=== PATIENT | male | born 1940 | race Caucasian/White ===

== ENCOUNTER 2018-06-20 07:48 | Day surgery (SDC) | payer MEDICARE, BC ==
[2018-06-20] VITALS (16 sets, daily range): BP systolic 107–157; BP diastolic 56–103
[~2018-06-20] VITALS: Ht 170.2 cm; Wt 97.3 kg
[2018-06-20] MEDS ORDERED: normal saline 1000ml 1,000 ML IV SCH (08:10)
[2018-06-20 08:32] LABS: BASOPHILS % (AUTO) 0.1 % (0-1); EOSINOPHILS # (AUTO) 0.3 X10'3 (0-0.9); EOSINOPHILS % (AUTO) 2.2 % (0-6); HEMOGLOBIN 13.5 g/dl (14.0-17.9); LYMPHOCYTES % (AUTO) 37.5 % (21-51); MEAN CORPUSCULAR HEMOGLOBIN 30.1 PG (27.0-31.0); MEAN CORPUSCULAR HGB CONC 33.9 % (33.0-36.5); MEAN CORPUSCULAR VOLUME 88.8 FL (78-98); MONOCYTES % (AUTO) 7.6 % (2-12); NEUTROPHILS % (AUTO) 52.6 % (42-75); PLATELET COUNT 250 X10'3 (140-440); RED CELL DISTRIBUTION WIDTH 13.6 % (11.5-14.5); WHITE BLOOD COUNT 13.3 X10'3 (4.5-11.0)
[2018-06-20] MEDS ORDERED: METF10004 PO (08:46)
[2018-06-20] MEDS ORDERED: ATOR20TA PO (08:46)
[2018-06-20] MEDS ORDERED: FLO0.4C PO (08:46)
[2018-06-20] MEDS ORDERED: VIT1CAPS9 PO (08:46)
[2018-06-20] MEDS ORDERED: ASPI-1265 PO (08:46)
[2018-06-20] MEDS ORDERED: GLIP2.5T3 PO (08:46)
[2018-06-20] MEDS ORDERED: HYDR25TA4 PO (08:46)
[2018-06-20] MEDS ORDERED: LISI40TA4 PO (08:46)
[2018-06-20] MEDS ORDERED: AZEL6DRO6 EACHEYE (08:46)
[2018-06-20] MEDS ORDERED: CARV25TA2 PO (08:46)
[2018-06-20] MEDS ORDERED: KEN0.1O TP (08:46)
[2018-06-20] MEDS ORDERED: AMLO10TA PO (08:46)
[2018-06-20] MEDS ORDERED: midazolam 2 mg/2 ml injection IV PRN (09:35)
[2018-06-20] MEDS ORDERED: fentaNYL/PF 50MCG/1 ML 2ML syringe IV PRN (09:35)
[2018-06-20] MEDS ORDERED: fentaNYL/PF 50MCG/1 ML 2ML syringe ONE (09:54)
[2018-06-20] MEDS ORDERED: midazolam 2 mg/2 ml injection ONE (09:54)
[2018-06-20] MEDS ORDERED: HYDROcodone/acetaminophen 5mg/325mg tablet PO PRN (11:05)
== END 2018-06-20 13:10 | disposition home or self-care (01) ==
LOC: SSTAY O 07:48
PROVIDERS: ATTEND Radiology Diagnostic Radiology
DX: C34.02 Malignant neoplasm of left main bronchus (principal); I10 Essential (primary) hypertension; N40.0 Benign prostatic hyperplasia without lower urinary tract symptoms; E11.9 Type 2 diabetes mellitus without complications; Z72.89 Other problems related to lifestyle; Z79.84 Long term (current) use of oral hypoglycemic drugs; Z79.82 Long term (current) use of aspirin; Z79.899 Other long term (current) drug therapy
CPT/HCPCS: 32405; 36415; 71045; 77012; 85025; 99152; 99153; J2250; J3010; J7030

== ENCOUNTER 2018-07-24 05:29 | Inpatient (IN) | payer MEDICARE, BC ==
[2018-07-22 13:58] LABS: BASOPHILS % (AUTO) 0.2 % (0-1); EOSINOPHILS # (AUTO) 0.3 X10'3 (0-0.9); EOSINOPHILS % (AUTO) 2.3 % (0-6); LYMPHOCYTES # (AUTO) 5.5 X10'3 (1.1-4.8); LYMPHOCYTES % (AUTO) 43.7 % (21-51); MEAN CORPUSCULAR HEMOGLOBIN 30.2 PG (27.0-31.0); MEAN CORPUSCULAR HGB CONC 34.2 % (33.0-36.5); MEAN CORPUSCULAR VOLUME 88.3 FL (78-98); MEAN PLATELET VOLUME 7.9 FL (7.4-10.4); MONOCYTES # (AUTO) 1.1 X10'3 (0-0.9); MONOCYTES % (AUTO) 8.5 % (2-12); NEUTROPHILS # (AUTO) 5.7 X10'3 (1.8-7.7); NEUTROPHILS % (AUTO) 45.3 % (42-75); PRE OP HEMATOCRIT 38.9 % (42.0-52.0); PRE OP HEMOGLOBIN 13.3 g/dL (14.0-17.9); PRE OP PLATELET COUNT 257 X10'3 (140-440); RED BLOOD COUNT 4.41 X10'6 (4.70-6.10); RED CELL DISTRIBUTION WIDTH 13.5 % (11.5-14.5)
[2018-07-22 14:00] LABS: CLARITY,URINE CLEAR (Clear); COLOR,URINE YELLOW (Yellow); GLUCOSE, URINE NEGATIVE (Neg); KETONES,URINE NEGATIVE (Neg); LEUKOCYTE ESTERASE ,URINE NEGATIVE (Neg); NITRITES, URINE NEGATIVE (Neg); OCCULT BLOOD,URINE NEGATIVE (Neg); PH,URINE 7.5 (4.8-8.0); PROTEIN,URINE NEGATIVE (Neg); UROBILINOGEN,URINE 0.2 E.U/dL (0.2-1.0)
[2018-07-22 14:07] LABS: UA COLLECTION TYPE CLN CATCH MIDSTREAM
[2018-07-22 14:26] LABS: PRE OP PROTIME 10.4 SECONDS (9.0-12.0)
[2018-07-22 14:31] LABS: ALBUMIN 3.9 G/DL (3.4-5.0); ALBUMIN/GLOBULIN RATIO 1.1 (1.1-1.5); ALKALINE PHOSPHATASE 89 IU/L (46-116); BLOOD UREA NITROGEN 14 MG/DL (7-18); BUN/CREATININE RATIO 15.9 (5.4-32.0); CALCIUM 10.3 MG/DL (8.5-10.1); CHLORIDE 96 MMOL/L (99-107); CREATININE 0.88 MG/DL (0.60-1.10); PRE OP ALT 26 U/L (30-65); PRE OP ANION GAP 11 (8-16); PRE OP AST 20 U/L (10-37); PRE OP BILIRUB, TOTAL 0.4 MG/DL (0.0-1.0); PRE OP GLUCOSE 133 MG/DL (70-104); PRE OP SODIUM 137 MMOL/L (135-145); TOTAL CARBON DIOXIDE 30.4 MMOL/L (24-32); TOTAL PROTEIN 7.5 G/DL (6.4-8.2); eGFR 84 ML/MIN
[2018-07-22 14:32] LABS: ABG BASE EXCESS 5.3 mmol/L (-2.0-3.0); ABG HCO3 28.8 mmol/L (22.0-26.0); ABG OXYGEN SATURATION 96.6 % (95-98); ABG PCO2 (T) 38.2 mmHg (35.0-48.0); ABG PH (T) 7.495 (7.350-7.450); ABG PO2 (T) 84.2 mmHg (83-108); ALLEN'S TEST Positive; FCOHb 0.6 % (0.5-1.5); FMetHb 0.3 % (0.3-1.12); FO2Hb 95.7 % (94-100); TOTAL HEMOGLOBIN 13.8 G/dl (14.0-18.0)
[2018-07-22 14:35] LABS: PRE OP POTASSIUM 3.1 MMOL/L (3.4-5.1)
[2018-07-22 14:39] LABS: HEMOGLOBIN A1C 6.9 % (4.5-6.2)
[2018-07-24] VITALS (23 sets, daily range): BP systolic 143–184; BP diastolic 52–98
[~2018-07-24] VITALS: Ht 170.2 cm; Wt 110.5 kg
[~2018-07-24 05:29] MED LIST: AMLO10TA PO; ASPI-1265 PO; ATOR20TA PO; AZEL137S4 BOTHNARES; CARV25TA2 PO; FLO0.4C PO; GLIP2.5T3 PO; HYDR25TA4 PO; KEN0.1O TP; LISI40TA4 PO; METF-438 PO; MULT-1141 PO; VIT1CAPS9 PO; dextrose 50%-water 50ml dispensing syringe IV PRN; ringers solution, lacted 1,000 ML IV SCH
[2018-07-24] MEDS ORDERED: famotidine 20mg tablet PO ONE (05:30)
[2018-07-24] MEDS ORDERED: DOCUMENT DATE & TIME OF BETA-BLOCKER PO ONE (05:30)
[2018-07-24] MEDS ORDERED: metoprolol tartrate 12.5mg (1/2 tablet) PO ONE (05:30)
[2018-07-24] MEDS ORDERED: insulin regular, human 100 UNIT in normal saline 100ml IV soln 99 ML IV SCH ×2 (05:30)
[2018-07-24] MEDS ORDERED: Cefazolin 2GM/50ML dext iso,osmotic IVPB IV ONE (05:30)
[2018-07-24] MEDS ORDERED: LIDOcaine 1% (10mg/ml) 2ml vial ONE (06:05)
[2018-07-24] MEDS ORDERED: metoprolol tartrate 25mg tablet PO ONE (06:25)
[2018-07-24 06:46] LABS: ISTAT CREATININE 0.9 mg/dL (0.8-1.3); ISTAT HGB 12.9 g/dl (14.0-18.0); ISTAT IONIZED CALCIUM 1.3 mmol/L (1.03-1.32); ISTAT K 3.2 mmol/L (3.5-5.1); POC BUN/CREATININE RATIO 17.8 (5.4-32.0)
[2018-07-24] MEDS: mupirocin 2% nasal ointment 1gm UD NS SCH ×2 (06:49→19:07)
[2018-07-24] MEDS ORDERED: BUPIVAcaine/PF 2.5mg/ml (0.25%) 10ml vial ONE ×2 (07:06→08:39)
[2018-07-24] MEDS ORDERED: MIDAZolam 5mg/5ml vial ONE (07:19)
[2018-07-24] MEDS ORDERED: SUfentanil 50mcg/ml 1ml amp IV ONE (07:21)
[2018-07-24] MEDS ORDERED: potassium Cl 40MEQ/NS 500ml 500 ML IV ONE (07:25)
[2018-07-24] MEDS ORDERED: pancuronium br 1mg/ml inj IV ONE (07:27)
[2018-07-24] MEDS ORDERED: rocuronium 10mg/ml inj IV ONE (07:27)
[2018-07-24] MEDS ORDERED: propofol inj 20 ML IV ONE (07:27)
[2018-07-24] MEDS ORDERED: ringers solution, lacted 1,000 ML IV SCH (09:55)
[2018-07-24] MEDS ORDERED: meperidine/PF 25mg/ml syringe IV PRN ×3 (09:55)
[2018-07-24] MEDS ORDERED: proCHLORperazine 10 MG/2 ml inj IV PRN (09:55)
[2018-07-24] MEDS ORDERED: ondansetron/PF 4mg/2ml inj IV PRN (09:55)
[2018-07-24] MEDS ORDERED: morphine 4 MG/ML inj SYRINge IV PRN ×4 (09:55→11:35)
[2018-07-24] MEDS ORDERED: neostigmine methylsulfate 1 MG/ML 10ml vial ONE (11:09)
[2018-07-24] MEDS ORDERED: glycopyrrolate 0.2mg/ml inj ONE (11:09)
[2018-07-24] MEDS ORDERED: ondansetron/PF 4mg/2ml inj ONE (11:22)
[2018-07-24] MEDS ORDERED: ketorolac trometh. 30mg/ml inj. ONE (11:22)
[2018-07-24] MEDS ORDERED: ceFAZolin 1000mg inj ONE (11:23)
[2018-07-24] MEDS ORDERED: morphine/NS 5 mg/ml CADD 50 ML IV SCH (11:32)
[2018-07-24] MEDS ORDERED: MESSAGE TO PHARMACY PO ONE (11:35)
[2018-07-24] MEDS ORDERED: CADD PCA waste documentation MC PRN (11:35)
[2018-07-24] MEDS ORDERED: metoclopramide 5 mg/ml inj IV PRN (11:35)
[2018-07-24] MEDS ORDERED: dextrose 50%-water 50ml dispensing syringe IV PRN ×2 (11:35)
[2018-07-24] MEDS ORDERED: glucagon, human recombinant 1mg kit SUBCUT PRN (11:35)
[2018-07-24] MEDS ORDERED: naloxone 0.4 mg/ml inj IV PRN (11:35)
[2018-07-24] MEDS ORDERED: dextrose ORAL solution 15 GM/59 ML bottle PO PRN ×2 (11:35)
[2018-07-24 12:06] LABS: ISTAT ANION GAP 12 (8-12); ISTAT BUN 14 mg/dL (6-19); ISTAT CL 100 mmol/L (99-107); ISTAT CREATININE 0.7 mg/dL (0.8-1.3); ISTAT GLUCOSE 185 mg/dL (70-104); ISTAT HGB 12.2 g/dl (14.0-18.0); ISTAT Hct 36 %PCV (42-52); ISTAT IONIZED CALCIUM 1.23 mmol/L (1.03-1.32); ISTAT K 3.4 mmol/L (3.5-5.1); ISTAT NA 140 mmol/L (135-145); ISTAT TOTAL CO2 28 mmol/L (24-32); ISTAT eGFR > 90 ML/MIN
[2018-07-24 12:25] LABS: ABG BASE EXCESS -1.9 mmol/L (-2.0-3.0); ABG HCO3 23.5 mmol/L (22.0-26.0); ABG OXYGEN SATURATION 96.8 % (95-98); ABG PCO2 (T) 41.3 mmHg (35.0-48.0); ABG PH (T) 7.371 (7.350-7.450); FCOHb 0.3 % (0.5-1.5); FLOW 12 L/min; FMetHb 0.2 % (0.3-1.12); FO2Hb 96.3 % (94-100); PATIENT TEMPERATURE 36.4; RESPIRATORY RATE (OBSERVED) 16 b/min; TOTAL HEMOGLOBIN 13.3 G/dl (14.0-18.0)
[2018-07-24 12:33] LABS: BASOPHILS % (AUTO) 0.1 % (0-1); EOSINOPHILS # (AUTO) 0.3 X10'3 (0-0.9); EOSINOPHILS % (AUTO) 1.5 % (0-6); HEMOGLOBIN 12.6 g/dl (14.0-17.9); LYMPHOCYTES # (AUTO) 2.8 X10'3 (1.1-4.8); LYMPHOCYTES % (AUTO) 14.3 % (21-51); MEAN CORPUSCULAR HEMOGLOBIN 29.9 PG (27.0-31.0); MEAN CORPUSCULAR HGB CONC 34.1 % (33.0-36.5); MEAN CORPUSCULAR VOLUME 87.7 FL (78-98); MEAN PLATELET VOLUME 7.8 FL (7.4-10.4); MONOCYTES # (AUTO) 0.3 X10'3 (0-0.9); MONOCYTES % (AUTO) 1.6 % (2-12); NEUTROPHILS # (AUTO) 15.9 X10'3 (1.8-7.7); NEUTROPHILS % (AUTO) 82.5 % (42-75); PLATELET COUNT 256 X10'3 (140-440); RED BLOOD COUNT 4.22 X10'6 (4.70-6.10); RED CELL DISTRIBUTION WIDTH 14.1 % (11.5-14.5); WHITE BLOOD COUNT 19.3 X10'3 (4.5-11.0)
[2018-07-24 12:42] LABS: ALBUMIN 3.5 G/DL (3.4-5.0); ANION GAP 7 (8-16); BLOOD UREA NITROGEN 15 MG/DL (7-18); BUN/CREATININE RATIO 17.2 (5.4-32.0); CHLORIDE 104 MMOL/L (99-107); CREATININE 0.87 MG/DL (0.60-1.10); GLUCOSE 191 MG/DL (70-104); POTASSIUM 3.3 MMOL/L (3.5-5.1); SODIUM 140 MMOL/L (135-145); TOTAL CARBON DIOXIDE 29.4 MMOL/L (24-32); eGFR 85 ML/MIN
[2018-07-24] MEDS ORDERED: hydrALAZINE 20mg/ml inj. IV PRN (16:15)
[2018-07-24] MEDS: ceFAZolin 1GM/D5W- ADD-VANTAGE 50 ML IV SCH ×2 (16:29→23:41)
[2018-07-24] MEDS: carVEDilol 12.5mg tablet PO SCH (16:43)
[2018-07-24] MEDS: insulin Lispro (HumaLOG) vial - multi-dose SQ SCH ×2 (16:45→19:12)
[2018-07-24] MEDS: morphine/NS 5 mg/ml CADD 50 ML IV SCH ×4 (17:00→23:00)
[2018-07-24] MEDS: triamcinolone acet 0.1% cream 15gm TP SCH (19:07)
[2018-07-24] MEDS: tamsulosin 0.4mg capsule PO SCH (20:31)
[2018-07-24] MEDS: atorvastatin 20mg tablet PO SCH (20:31)
[2018-07-24] MEDS: docusate sod 100mg capsule PO SCH (20:31)
[2018-07-24] MEDS: insulin glargine (Lantus) pen - multi-dose SQ SCH (20:55)
[2018-07-25] VITALS (24 sets, daily range): BP systolic 79–154; BP diastolic 42–76
[2018-07-25] MEDS: albuterol 2.5 MG/3 ML nebule NEB PRN ×2 (00:04→21:01)
[2018-07-25] MEDS: morphine/NS 5 mg/ml CADD 50 ML IV SCH ×12 (01:00→23:00)
[2018-07-25 02:41] LABS: BASOPHILS % (AUTO) 0.1 % (0-1); EOSINOPHILS % (AUTO) 0 % (0-6); HEMATOCRIT 31.3 % (42.0-52.0); HEMOGLOBIN 10.8 g/dl (14.0-17.9); LYMPHOCYTES # (AUTO) 2.6 X10'3 (1.1-4.8); LYMPHOCYTES % (AUTO) 13.6 % (21-51); MEAN CORPUSCULAR HGB CONC 34.4 % (33.0-36.5); MEAN CORPUSCULAR VOLUME 87.3 FL (78-98); MEAN PLATELET VOLUME 7.9 FL (7.4-10.4); MONOCYTES # (AUTO) 1.5 X10'3 (0-0.9); MONOCYTES % (AUTO) 8.2 % (2-12); NEUTROPHILS # (AUTO) 14.7 X10'3 (1.8-7.7); NEUTROPHILS % (AUTO) 78.1 % (42-75); PLATELET COUNT 218 X10'3 (140-440); RED BLOOD COUNT 3.58 X10'6 (4.70-6.10); RED CELL DISTRIBUTION WIDTH 13.6 % (11.5-14.5); WHITE BLOOD COUNT 18.9 X10'3 (4.5-11.0)
[2018-07-25 02:57] LABS: ANION GAP 7 (8-16); BLOOD UREA NITROGEN 13 MG/DL (7-18); BUN/CREATININE RATIO 14.8 (5.4-32.0); CALCIUM 7.9 MG/DL (8.5-10.1); CHLORIDE 93 MMOL/L (99-107); CREATININE 0.88 MG/DL (0.60-1.10); GLUCOSE 195 MG/DL (70-104); MAGNESIUM 1.4 MG/DL (1.5-2.4); POTASSIUM 3.3 MMOL/L (3.5-5.1); SODIUM 128 MMOL/L (135-145); TOTAL CARBON DIOXIDE 28.1 MMOL/L (24-32); eGFR 84 ML/MIN
[2018-07-25] MEDS ORDERED: Potassium Cl inj 40 MEQ in normal saline 250ml IV soln 230 ML IV ONE (03:55)
[2018-07-25] MEDS: ondansetron/PF 4mg/2ml inj IV PRN (03:57)
[2018-07-25] MEDS ORDERED: furosemide 40mg/4ml inj IV ONE (06:15)
[2018-07-25] MEDS ORDERED: dexamethasone sod phosphate 10mg/ml inj ONE (07:17)
[2018-07-25] MEDS ORDERED: potassium Cl 2 mEq/ml inj IV ONE (07:17)
[2018-07-25] MEDS ORDERED: sevoflurane 250ml liquid IH ONE (07:17)
[2018-07-25] MEDS: mupirocin 2% nasal ointment 1gm UD NS SCH ×2 (08:00→19:12)
[2018-07-25] MEDS: triamcinolone acet 0.1% cream 15gm TP SCH ×2 (08:00→19:13)
[2018-07-25] MEDS ORDERED: GLIPIZIDE PO SCH (08:00)
[2018-07-25] MEDS: carVEDilol 12.5mg tablet PO SCH ×2 (08:24→19:13)
[2018-07-25] MEDS: HYDROchlorothiazide 25mg tablet PO SCH (08:24)
[2018-07-25] MEDS: lisinopril 20mg tablet PO SCH (08:25)
[2018-07-25] MEDS: docusate sod 100mg capsule PO SCH ×2 (08:25→19:13)
[2018-07-25] MEDS: amLODIPine 5mg tablet PO SCH (08:25)
[2018-07-25] MEDS: aspirin 81mg tab.chew PO SCH (08:25)
[2018-07-25] MEDS: insulin Lispro (HumaLOG) vial - multi-dose SQ SCH ×3 (09:44→20:28)
[2018-07-25] MEDS: HYDROcodone/acetaminophen 10/325mg tab PO PRN ×2 (12:31→20:54)
[2018-07-25] MEDS: atorvastatin 20mg tablet PO SCH (20:16)
[2018-07-25] MEDS: tamsulosin 0.4mg capsule PO SCH (20:16)
[2018-07-25] MEDS: insulin glargine (Lantus) pen - multi-dose SQ SCH (20:27)
[2018-07-26] VITALS (23 sets, daily range): BP systolic 92–152; BP diastolic 47–76
[2018-07-26] MEDS: morphine/NS 5 mg/ml CADD 50 ML IV SCH ×7 (01:00→13:00)
[2018-07-26] MEDS: albuterol 2.5 MG/3 ML nebule NEB PRN ×2 (01:28→10:08)
[2018-07-26] MEDS: ondansetron/PF 4mg/2ml inj IV PRN (01:39)
[2018-07-26] MEDS: HYDROcodone/acetaminophen 10/325mg tab PO PRN ×3 (03:07→11:35)
[2018-07-26 04:18] LABS: BASOPHILS % (AUTO) 0.1 % (0-1); EOSINOPHILS % (AUTO) 0.1 % (0-6); HEMATOCRIT 26.2 % (42.0-52.0); LYMPHOCYTES % (AUTO) 20.1 % (21-51); MEAN CORPUSCULAR HEMOGLOBIN 30.2 PG (27.0-31.0); MEAN CORPUSCULAR HGB CONC 34.4 % (33.0-36.5); MEAN CORPUSCULAR VOLUME 87.9 FL (78-98); MEAN PLATELET VOLUME 8.1 FL (7.4-10.4); MONOCYTES # (AUTO) 2.5 X10'3 (0-0.9); MONOCYTES % (AUTO) 12.7 % (2-12); NEUTROPHILS # (AUTO) 13.4 X10'3 (1.8-7.7); PLATELET COUNT 192 X10'3 (140-440); RED BLOOD COUNT 2.99 X10'6 (4.70-6.10); RED CELL DISTRIBUTION WIDTH 13.5 % (11.5-14.5); WHITE BLOOD COUNT 19.9 X10'3 (4.5-11.0)
[2018-07-26 04:59] LABS: ALBUMIN 2.8 G/DL (3.4-5.0); ANION GAP 6 (8-16); BLOOD UREA NITROGEN 29 MG/DL (7-18); CALCIUM 8.3 MG/DL (8.5-10.1); CHLORIDE 93 MMOL/L (99-107); CREATININE 1.32 MG/DL (0.60-1.10); GLUCOSE 152 MG/DL (70-104); MAGNESIUM 1.8 MG/DL (1.5-2.4); POTASSIUM 3.7 MMOL/L (3.5-5.1); SODIUM 128 MMOL/L (135-145); TOTAL CARBON DIOXIDE 28.8 MMOL/L (24-32); eGFR 53 ML/MIN
[2018-07-26] MEDS: magnesium hydroxide 30ml (MOM) UD suspension PO PRN (07:16)
[2018-07-26] MEDS: HYDROchlorothiazide 25mg tablet PO SCH (07:17)
[2018-07-26] MEDS: docusate sod 100mg capsule PO SCH ×2 (07:17→19:08)
[2018-07-26] MEDS: aspirin 81mg tab.chew PO SCH (07:17)
[2018-07-26] MEDS: lisinopril 20mg tablet PO SCH (07:17)
[2018-07-26] MEDS: carVEDilol 12.5mg tablet PO SCH ×2 (07:18→19:05)
[2018-07-26] MEDS: amLODIPine 5mg tablet PO SCH (07:18)
[2018-07-26] MEDS: triamcinolone acet 0.1% cream 15gm TP SCH ×2 (07:23→19:08)
[2018-07-26] MEDS: mupirocin 2% nasal ointment 1gm UD NS SCH ×2 (07:23→19:07)
[2018-07-26] MEDS: insulin Lispro (HumaLOG) vial - multi-dose SQ SCH ×3 (10:07→19:18)
[2018-07-26] MEDS ORDERED: naloxone 0.4 mg/ml inj IV PRN (11:30)
[2018-07-26] MEDS ORDERED: CADD PCA waste documentation MC PRN (11:30)
[2018-07-26] MEDS ORDERED: magnesium Cl slow-release 64mg tablet PO PRN (13:45)
[2018-07-26] MEDS ORDERED: potassium Cl 40MEQ/NS 500ml 500 ML IV PRN ×2 (13:45)
[2018-07-26] MEDS ORDERED: magnesium 1gm/100ml D5W IVPB 100 ML IV PRN (13:45)
[2018-07-26] MEDS ORDERED: potassium Cl 20 mEq SR tablet PO PRN ×2 (13:45)
[2018-07-26] MEDS ORDERED: magnesium 4gm in 100ml NS 100 ML IV PRN (13:45)
[2018-07-26] MEDS ORDERED: magnesium 2GM in 50ml NS 50 ML IV PRN (14:10)
[2018-07-26] MEDS: magnesium Cl slow-release 64mg tablet PO SCH (19:05)
[2018-07-26] MEDS: potassium Cl 20 mEq SR tablet PO SCH (19:07)
[2018-07-26] MEDS: atorvastatin 20mg tablet PO SCH (20:55)
[2018-07-26] MEDS: tamsulosin 0.4mg capsule PO SCH (20:55)
[2018-07-26] MEDS: insulin glargine (Lantus) pen - multi-dose SQ SCH (21:10)
[2018-07-27] VITALS (18 sets, daily range): BP systolic 93–154; BP diastolic 46–82
[2018-07-27] MEDS: HYDROcodone/acetaminophen 10/325mg tab PO PRN (01:41)
[2018-07-27] MEDS: albuterol 2.5 MG/3 ML nebule NEB PRN (02:25)
[2018-07-27 03:09] LABS: BASOPHILS % (AUTO) 0.2 % (0-1); EOSINOPHILS # (AUTO) 0.3 X10'3 (0-0.9); EOSINOPHILS % (AUTO) 1.6 % (0-6); HEMATOCRIT 25.8 % (42.0-52.0); HEMOGLOBIN 8.9 g/dl (14.0-17.9); LYMPHOCYTES # (AUTO) 3.5 X10'3 (1.1-4.8); LYMPHOCYTES % (AUTO) 21.1 % (21-51); MEAN CORPUSCULAR HEMOGLOBIN 30.5 PG (27.0-31.0); MEAN CORPUSCULAR HGB CONC 34.6 % (33.0-36.5); MEAN CORPUSCULAR VOLUME 88.1 FL (78-98); MEAN PLATELET VOLUME 7.6 FL (7.4-10.4); MONOCYTES % (AUTO) 12.4 % (2-12); NEUTROPHILS # (AUTO) 10.7 X10'3 (1.8-7.7); NEUTROPHILS % (AUTO) 64.7 % (42-75); PLATELET COUNT 186 X10'3 (140-440); RED BLOOD COUNT 2.92 X10'6 (4.70-6.10); WHITE BLOOD COUNT 16.5 X10'3 (4.5-11.0)
[2018-07-27 03:24] LABS: ALBUMIN 2.7 G/DL (3.4-5.0); ANION GAP 4 (8-16); BLOOD UREA NITROGEN 20 MG/DL (7-18); BUN/CREATININE RATIO 24.4 (5.4-32.0); CALCIUM 8.8 MG/DL (8.5-10.1); CHLORIDE 89 MMOL/L (99-107); CREATININE 0.82 MG/DL (0.60-1.10); GLUCOSE 161 MG/DL (70-104); MAGNESIUM 2.1 MG/DL (1.5-2.4); POTASSIUM 3.5 MMOL/L (3.5-5.1); SODIUM 123 MMOL/L (135-145); eGFR > 90 ML/MIN
[2018-07-27] MEDS: aspirin 81mg tab.chew PO SCH (07:36)
[2018-07-27] MEDS: carVEDilol 12.5mg tablet PO SCH ×2 (07:36→20:26)
[2018-07-27] MEDS: HYDROchlorothiazide 25mg tablet PO SCH (07:36)
[2018-07-27] MEDS: amLODIPine 5mg tablet PO SCH (07:37)
[2018-07-27] MEDS: triamcinolone acet 0.1% cream 15gm TP SCH ×2 (07:37→20:00)
[2018-07-27] MEDS: mupirocin 2% nasal ointment 1gm UD NS SCH (07:37)
[2018-07-27] MEDS: lisinopril 20mg tablet PO SCH (07:37)
[2018-07-27] MEDS: docusate sod 100mg capsule PO SCH ×2 (07:37→20:00)
[2018-07-27] MEDS: potassium Cl 20 mEq SR tablet PO SCH ×3 (07:37→20:26)
[2018-07-27] MEDS: magnesium Cl slow-release 64mg tablet PO SCH ×3 (07:39→20:25)
[2018-07-27] MEDS: magnesium hydroxide 30ml (MOM) UD suspension PO PRN (07:39)
[2018-07-27] MEDS: K and/or MAG REPLACEMENT MC SCH (08:00)
[2018-07-27] MEDS ORDERED: magnesium citrate 296ml oral solution PO ONE (10:55)
[2018-07-27] MEDS ORDERED: potassium Cl 40MEQ/NS 500ml 500 ML IV PRN ×2 (11:00)
[2018-07-27] MEDS ORDERED: magnesium 4gm in 100ml NS 100 ML IV PRN (11:00)
[2018-07-27] MEDS ORDERED: pantoprazole 40mg Tablet.DR PO ONE (11:00)
[2018-07-27] MEDS ORDERED: magnesium Cl slow-release 64mg tablet PO PRN (11:00)
[2018-07-27] MEDS ORDERED: potassium Cl 20 mEq SR tablet PO PRN ×2 (11:00)
[2018-07-27] MEDS ORDERED: magnesium 2GM in 50ml NS 50 ML IV SCH (11:05)
[2018-07-27] MEDS: insulin Lispro (HumaLOG) vial - multi-dose SQ SCH ×2 (11:26→14:45)
[2018-07-27] MEDS: NUT.TX.GLUC.INTOLER,LAC-FR,SOY (GLUCERNA) 237 ML PO SCH ×2 (13:00→18:00)
[2018-07-27] MEDS: atorvastatin 20mg tablet PO SCH (20:24)
[2018-07-27] MEDS: tamsulosin 0.4mg capsule PO SCH (20:24)
[2018-07-27] MEDS: metFORMIN 500mg tablet PO SCH (20:35)
[2018-07-28] MEDS: HYDROcodone/acetaminophen 10/325mg tab PO PRN ×4 (01:25→23:36)
[2018-07-28 02:00] VITALS: BP 124/63
[2018-07-28 06:00] VITALS: BP 129/64
[2018-07-28 06:09] LABS: BASOPHILS % (AUTO) 0.1 % (0-1); EOSINOPHILS # (AUTO) 0.2 X10'3 (0-0.9); EOSINOPHILS % (AUTO) 1.4 % (0-6); HEMATOCRIT 25.8 % (42.0-52.0); HEMOGLOBIN 8.7 g/dl (14.0-17.9); LYMPHOCYTES # (AUTO) 3.4 X10'3 (1.1-4.8); LYMPHOCYTES % (AUTO) 24.7 % (21-51); MEAN CORPUSCULAR HGB CONC 33.7 % (33.0-36.5); MEAN CORPUSCULAR VOLUME 89.1 FL (78-98); MEAN PLATELET VOLUME 7.9 FL (7.4-10.4); MONOCYTES # (AUTO) 1.7 X10'3 (0-0.9); MONOCYTES % (AUTO) 12.7 % (2-12); NEUTROPHILS # (AUTO) 8.4 X10'3 (1.8-7.7); NEUTROPHILS % (AUTO) 61.1 % (42-75); PLATELET COUNT 206 X10'3 (140-440); RED CELL DISTRIBUTION WIDTH 13.4 % (11.5-14.5); WHITE BLOOD COUNT 13.7 X10'3 (4.5-11.0)
[2018-07-28 06:20] LABS: ALBUMIN 2.3 G/DL (3.4-5.0); ANION GAP 2 (8-16); BLOOD UREA NITROGEN 14 MG/DL (7-18); BUN/CREATININE RATIO 17.7 (5.4-32.0); CALCIUM 8.6 MG/DL (8.5-10.1); CHLORIDE 92 MMOL/L (99-107); CREATININE 0.79 MG/DL (0.60-1.10); GLUCOSE 134 MG/DL (70-104); POTASSIUM 3.6 MMOL/L (3.5-5.1); SODIUM 127 MMOL/L (135-145); TOTAL CARBON DIOXIDE 32.7 MMOL/L (24-32); eGFR > 90 ML/MIN
[2018-07-28] MEDS: K and/or MAG REPLACEMENT MC SCH ×2 (06:21→07:45)
[2018-07-28] MEDS: amLODIPine 5mg tablet PO SCH (07:43)
[2018-07-28] MEDS: aspirin 81mg tab.chew PO SCH (07:43)
[2018-07-28] MEDS: potassium Cl 20 mEq SR tablet PO SCH ×4 (07:43→20:25)
[2018-07-28] MEDS: carVEDilol 12.5mg tablet PO SCH ×2 (07:44→20:25)
[2018-07-28] MEDS: magnesium Cl slow-release 64mg tablet PO SCH ×4 (07:44→20:25)
[2018-07-28] MEDS: pantoprazole 40mg Tablet.DR PO SCH (07:44)
[2018-07-28] MEDS: docusate sod 100mg capsule PO SCH ×2 (07:45→20:25)
[2018-07-28] MEDS: lisinopril 20mg tablet PO SCH (07:45)
[2018-07-28] MEDS: HYDROchlorothiazide 25mg tablet PO SCH (07:45)
[2018-07-28] MEDS: metFORMIN 500mg tablet PO SCH ×2 (07:46→20:26)
[2018-07-28] MEDS: NUT.TX.GLUC.INTOLER,LAC-FR,SOY (GLUCERNA) 237 ML PO SCH ×3 (08:00→17:41)
[2018-07-28] MEDS: triamcinolone acet 0.1% cream 15gm TP SCH ×2 (08:00→20:00)
[2018-07-28] MEDS ORDERED: magnesium citrate 296ml oral solution PO ONE (09:35)
[2018-07-28 11:00] VITALS: BP 120/59
[2018-07-28 15:00] VITALS: BP 140/68
[2018-07-28 19:00] VITALS: BP 143/63
[2018-07-28] MEDS: atorvastatin 20mg tablet PO SCH (20:25)
[2018-07-28] MEDS: tamsulosin 0.4mg capsule PO SCH (20:25)
[2018-07-28 23:00] VITALS: BP 145/68
[2018-07-29 03:00] VITALS: BP 143/65
[2018-07-29 05:28] LABS: BASOPHILS % (AUTO) 0.2 % (0-1); EOSINOPHILS # (AUTO) 0.2 X10'3 (0-0.9); EOSINOPHILS % (AUTO) 1.3 % (0-6); HEMATOCRIT 23.7 % (42.0-52.0); HEMOGLOBIN 8.2 g/dl (14.0-17.9); LYMPHOCYTES # (AUTO) 3.5 X10'3 (1.1-4.8); LYMPHOCYTES % (AUTO) 26.2 % (21-51); MEAN CORPUSCULAR HEMOGLOBIN 30.3 PG (27.0-31.0); MEAN CORPUSCULAR HGB CONC 34.5 % (33.0-36.5); MEAN PLATELET VOLUME 7.6 FL (7.4-10.4); MONOCYTES # (AUTO) 1.6 X10'3 (0-0.9); MONOCYTES % (AUTO) 12.4 % (2-12); NEUTROPHILS % (AUTO) 59.9 % (42-75); PLATELET COUNT 238 X10'3 (140-440); RED BLOOD COUNT 2.69 X10'6 (4.70-6.10); RED CELL DISTRIBUTION WIDTH 13.4 % (11.5-14.5); WHITE BLOOD COUNT 13.3 X10'3 (4.5-11.0)
[2018-07-29 05:54] LABS: ALBUMIN 2.2 G/DL (3.4-5.0); ANION GAP 3 (8-16); BLOOD UREA NITROGEN 13 MG/DL (7-18); BUN/CREATININE RATIO 17.1 (5.4-32.0); CALCIUM 8.5 MG/DL (8.5-10.1); CHLORIDE 92 MMOL/L (99-107); CREATININE 0.76 MG/DL (0.60-1.10); GLUCOSE 135 MG/DL (70-104); MAGNESIUM 2.1 MG/DL (1.5-2.4); POTASSIUM 3.6 MMOL/L (3.5-5.1); SODIUM 129 MMOL/L (135-145); TOTAL CARBON DIOXIDE 33.7 MMOL/L (24-32); eGFR > 90 ML/MIN
[2018-07-29 06:00] VITALS: BP 115/70
[2018-07-29] MEDS: potassium Cl 20 mEq SR tablet PO SCH ×2 (08:00→10:37)
[2018-07-29] MEDS: K and/or MAG REPLACEMENT MC SCH ×2 (08:00)
[2018-07-29] MEDS: magnesium Cl slow-release 64mg tablet PO SCH ×2 (08:00→10:36)
[2018-07-29] MEDS: NUT.TX.GLUC.INTOLER,LAC-FR,SOY (GLUCERNA) 237 ML PO SCH ×2 (08:00→13:33)
[2018-07-29] MEDS: triamcinolone acet 0.1% cream 15gm TP SCH (08:00)
[2018-07-29 10:30] VITALS: BP 144/69
[2018-07-29] MEDS: docusate sod 100mg capsule PO SCH (10:36)
[2018-07-29] MEDS: lisinopril 20mg tablet PO SCH (10:36)
[2018-07-29] MEDS: HYDROchlorothiazide 25mg tablet PO SCH (10:36)
[2018-07-29] MEDS: aspirin 81mg tab.chew PO SCH (10:36)
[2018-07-29] MEDS: pantoprazole 40mg Tablet.DR PO SCH (10:37)
[2018-07-29] MEDS: carVEDilol 12.5mg tablet PO SCH (10:37)
[2018-07-29] MEDS: metFORMIN 500mg tablet PO SCH (10:37)
[2018-07-29] MEDS: amLODIPine 5mg tablet PO SCH (10:37)
[2018-07-29] MEDS: HYDROcodone/acetaminophen 10/325mg tab PO PRN (13:34)
== END 2018-07-29 15:49 | DRG 164 ==
LOC: PAS IN 05:29 → EDSTATUS 07:30 → CICU 2S 13:36 → PCU 3S 07-27 15:50
PROVIDERS: ADMIT Thoracic Surgery (Cardiothoracic Vascular Surgery); ATTEND Thoracic Surgery (Cardiothoracic Vascular Surgery)
PROC: 07B74ZZ Excision of Thorax Lymphatic, Percutaneous Endoscopic Approach (ICD-10-PCS; 2018-07-24)
PROC: 3E0T3BZ Introduction of Anesthetic Agent into Peripheral Nerves and Plexi, Percutaneous Approach (ICD-10-PCS; 2018-07-24)
PROC: 02HV33Z Insertion of Infusion Device into Superior Vena Cava, Percutaneous Approach (ICD-10-PCS; 2018-07-24)
PROC: B548ZZA Ultrasonography of Superior Vena Cava, Guidance (ICD-10-PCS; 2018-07-24)
PROC: 0BJ08ZZ Inspection of Tracheobronchial Tree, Via Natural or Artificial Opening Endoscopic (ICD-10-PCS; 2018-07-24)
PROC: 0BTG4ZZ Resection of Left Upper Lung Lobe, Percutaneous Endoscopic Approach (ICD-10-PCS; principal; 2018-07-24 07:17)
DX: C34.12 Malignant neoplasm of upper lobe, left bronchus or lung (principal); D62 Acute posthemorrhagic anemia; E11.9 Type 2 diabetes mellitus without complications; I10 Essential (primary) hypertension; N40.1 Benign prostatic hyperplasia with lower urinary tract symptoms; R63.0 Anorexia; R33.8 Other retention of urine; Z79.899 Other long term (current) drug therapy; Z79.82 Long term (current) use of aspirin; Z79.84 Long term (current) use of oral hypoglycemic drugs; Z83.3 Family history of diabetes mellitus
CPT/HCPCS: 36415; 36600; 71045; 71046; 80047; 80048; 80053; 81003; 82803; 82948; 83036; 83735; 85018; 85025; 85610; 85730; 86885; 86900; 86901; 86920; 87070; 88305; 88309; 88312; 88331; 93005; 94640; 94668; 94760; 97110; 97116; 97161; 97530; A4353; A6213; A6223; A6253; A6255; A6257; A6258; A6402; A6449; A7000; A7048; C1758; J0690; J1100; J1815; J1885; J1940; J2250; J2270; J2405; J2704; J2710; J2765; J3480; J3490; J7030; J7120